=== PATIENT | male | born 1965 | race Caucasian/White ===

== ENCOUNTER 2020-06-16 01:07 | Outpatient (CLI) | payer BC, SELFPAY ==
[2020-06-16 19:58] LABS: SARS-CoV-2 RNA PCR Negative
== END 2020-06-16 01:08 | disposition home or self-care (01) ==
LOC: ANHCOVIDDT 01:07
PROVIDERS: PCP Family Medicine; Visit Provider Surgery
DX: Z01.812 Encounter for preprocedural laboratory examination (principal); Z20.828 Contact with and (suspected) exposure to other viral communicable diseases
CPT/HCPCS: 87635; C9803; U0003

== ENCOUNTER 2020-06-18 03:06 | Day surgery (SDC) | payer BC, SELFPAY ==
[2020-06-05 10:06] VITALS: BMI 23.6
--- NOTE | 2020-06-17 16:06 | WPDANESEPPF ---
Anes - Initial Pre Proc Eval Procedure: Operation Date: 06/18/20 08:45 Proposed Procedures p Excision Left Forearm Mass, Excision Left Flank Mass, Excision Left Thigh Mass, Excision Right Subcostal Mass, Excision Right Hip Mass, Excision Right Flank Mass - Sharif Lewis DO Date/Time: 06/17/20 16:06 Surgeon: Sharif Lewis DO Pre Op Diagnosis: Lt Forearm/Lt Flank/Lt Thigh/Rt Hip/Rt Flank Mass Patient Data Age: 54 Gender: M Height: 1.75 m Weight: 72.57 kg Allergies Allergy/AdvReac Type Severity Reaction Status Date / Time codeine AdvReac Intermediate Nausea Verified 06/18/20 07:00 Home Medications Medication Instructions Recorded Confirmed Type trazodone 50 mg tablet 50 mg PO HS 09/26/19 06/18/20 History bupropion HCl 150 mg 24 hr tablet, 150 mg PO QAM #90 tablet 03/28/20 06/18/20 Rx extended release lithium carbonate 150 mg PO DAILY 06/18/20 06/18/20 History Patient hx anesthesia problems: none Family hx anesthesia problems: none PMFSH Past Medical History Medical History (Updated 06/17/20 @ 16:06 by Dom Holloway MD) Cyclothymic disorder Lipoma Prostatism Tinea versicolor Unspecified sleep apnea Surgical History Surgical History H/O arthroscopic knee surgery History of sinus surgery History of vasectomy Family History Family History Grandparent Depression Family history of cardiovascular disease Mother Depression Family history of hearing loss Sibling Family history of malignant neoplasm of breast in first degree relative Father Patient's father is in good health Other Family history of malignant neoplasm of stomach Social History Social History Smoking status: Never smoker Alcohol intake: current Drinks per week: 6 Spiritual care concerns: No Anes - Eval Final PreProcedure Day of Procedure 06/17/20 16:06 Patient weight: overweight Heart: regular rate and rhythm Lungs: clear to auscultation and normal air movement Airway: Mallampati scale class II Neurological: alert and oriented Last oral intake: >/= 8 hours ASA classification: II Emergent: no Anesthetic plan: proceed Anesthesia type and monitoring: general GIVS and LMA Informed Consent: The patient's anesthetic plan and its attendant risks and benefits were discussed with the patient/family/POA. Questions were solicited and answers provided to the satisfaction of the patient/family/POA.
[2020-06-18] MEDS: LACTATED RINGERS 1,000 ML 30 ML IV CONT (07:19)
[2020-06-18 07:20] VITALS: BP 119/80; PULSE 72; RESP 16; TEMP 36.3; O2SAT 100
--- NOTE | 2020-06-18 07:22 | WPDHPUPDATE1 ---
History and Physical Update Update Date/Time: 06/18/20 07:22 History and Physical has been reviewed, including an updated exam of the patient. Patient has one other mass on his left chest that he would like removed also. Otherwise, there are NO other changes in the patient's condition. Risks, benefits, and alternatives have been discussed and questions answered. Patient agrees to proceed with procedure.
[2020-06-18] MEDS: ceFAZolin 2 GM/D5W 50 ML 2 GM/50 ML BAG IVPB (08:36)
[2020-06-18] MEDS: LIDO 1%/EPINEPHRINE 1:100,000 20 ML VIAL INFILTRATE (09:05)
--- NOTE | 2020-06-18 09:23 | P.OP_ITS ---
Procedure Note - Detailed Date of procedure: 06/18/20 Pre-op diagnosis: 1. 1cm left forearm mass 2. 1cm left chest wall mass 3. 2cm left flank mass 4. 2cm left thigh mass 5. 1cm right hip mass 6. 1cm right subcostal mass 7. 2cm right flank mass Post-op diagnosis: same Procedure performed: Excision of 1cm left forearm mass, 1cm left chest wall mass, 2cm left flank mass, 2cm left thigh mass, 1cm right hip mass, 1cm right subcostal mass, and 2cm right flank mass Description of procedure: * Procedure as well as risks, benefits, and alternatives were discussed with the patient. Written consent was obtained and placed in chart prior to procedure. Patient was brought back to surgical suite. He was placed supine on operating table. Time-out was done to confirm patient and procedure. IV sedation was then administered by the Anesthesia Department. The surgical areas were prepped and draped in sterile fashion using chlorhexidine prep. 1% lidocaine with epinephrine was infiltrated locally around each of the masses that were marked in the preop area. A 2 cm incision was made over the lower left forearm mass using a 15 blade scalpel. Electrocautery was used for hemostasis. The subcu mass was then carefully excised and sent to the lab for pathology. The incision was then closed using 4 Monocryl subcuticular suture. A 1 cm incision was made over the left chest wall mass. Electrocautery was used for hemostasis and the mass was carefully excised using blunt dissection and electrocautery. It was completely excised and sent to the lab for pathology. The incision was then reapproximated using 4 Monocryl subcuticular suture. A 2 cm incision was made over the left flank mass using a 15 blade scalpel. Electrocautery was used for hemostasis and the mass was excised completely. The incision was closed using 4 Monocryl subcuticular suture. 2 cm incision was made over the left thigh mass using a 15 blade scalpel. Electrocautery was used for hemostasis and the mass was carefully excised completely. The skin was reapproximated using 4 Monocryl subcuticular suture. A 1 cm incision was made over the right hip mass. Electrocautery was used for hemostasis and the mass was completely excised. The incision was then closed using 4 O Monocryl subcuticular suture. A 1 cm incision was made over the right subcostal mass. Electrocautery was used for hemostasis and the mass was excised completely. The incision was then approximated using 4 Monocryl subcuticular suture. And finally, a 2 cm incision was made over the right flank mass. Electrocautery was used for hemostasis and the mass was excised completely. The incision was approximated using 4 Monocryl subcuticular suture. Exofin glue was applied over each of the incisions. The patient was then awakened from anesthesia and transferred to recovery. Anesthesia: MAC and local (1% lidocaine with epi) Surgeon: Sharif Lewis DO Estimated blood loss (mL): 5 Pathology: yes Complications: No immediate complications Condition: stable Disposition: same day Findings: This is a 54-year-old man who presents with multiple subcu masses on his body. These are soft mobile masses that cause some tenderness and irritate the patient at times. Discussions were made with the patient that these are all likely benign lipomas. Due to his symptoms, he was requesting excision. Decision was made to proceed with excision of the multiple masses. All masses were excised in a similar fashion. They all appeared to have the same consistency of a lipoma, therefore they were all sent as 1 specimen to pathology. No suspicious masses were noted. Final pathology is pending.
[2020-06-18 09:38] VITALS: BP 114/77; PULSE 67; RESP 12; TEMP 35.9; O2SAT 100
[2020-06-18 09:50] VITALS: BP 115/76; PULSE 60; RESP 16; O2SAT 99
[2020-06-18 10:20] VITALS: BP 122/87; PULSE 66; RESP 14; O2SAT 100
[2020-06-18 10:30] VITALS: BP 116/73; PULSE 70; RESP 16; O2SAT 100
== END 2020-06-18 10:43 | disposition home or self-care (01) ==
PROVIDERS: PCP Family Medicine; Visit Provider Surgery
PROC: (CPT 25075; principal; 2020-06-18 08:45)
DX: D17.1 Benign lipomatous neoplasm of skin and subcutaneous tissue of trunk (principal); D17.24 Benign lipomatous neoplasm of skin and subcutaneous tissue of left leg; D17.23 Benign lipomatous neoplasm of skin and subcutaneous tissue of right leg; D17.22 Benign lipomatous neoplasm of skin and subcutaneous tissue of left arm; G47.30 Sleep apnea, unspecified
CPT/HCPCS: 25075; 21555; 22902 ×2; 27327; 27047; 21930; 88304; A9270; J0690; J2250; J2704; J3010; J7120

== ENCOUNTER 2020-09-08 11:45 | Outpatient (NON) | payer BC, SELFPAY ==
[2020-09-08 22:05] LABS: SARS-CoV-2 RNA PCR Negative
== END 2020-09-08 11:46 ==
LOC: ANHCOVIDDT 11:46
PROVIDERS: Family Provider Family Medicine; PCP Family Medicine; Visit Provider Family Medicine
DX: Z20.822 Contact with and (suspected) exposure to COVID-19 (principal); R05 Cough; R50.9 Fever, unspecified; R53.83 Other fatigue
CPT/HCPCS: C9803; U0003; U0005

== ENCOUNTER 2020-10-01 11:34 | Outpatient (CLI) | payer BC, SELFPAY ==
--- NOTE | ~2020-10-01 | XR_ITS ---
EXAMINATION: XR chest 2V DATE: 10/01/2020 11:55 INDICATION: Cough TECHNIQUE: PA and lateral views of the chest are obtained. COMPARISON: 02/26/2019 FINDINGS: The lungs are free of acute opacities. There is no pleural effusion or pneumothorax. The ca rdiomediastinal silhouette is normal. The visualized bones and soft tissues are unremarkable. IMPRESSION: 1. No acute cardiopulmonary abnormality. Reviewed, dictated and finalized at location A. [facility]
== END 2020-10-01 11:35 | disposition home or self-care (01) ==
PROVIDERS: PCP Family Medicine; Visit Provider Family Medicine
DX: R05 Cough (principal)
CPT/HCPCS: 71046

== ENCOUNTER 2022-02-03 13:31 | Outpatient (CLI) | payer OTHER, SELFPAY ==
--- NOTE | ~2022-02-03 | CT_ITS ---
EXAMINATION: CT abdomen wo con DATE: 02/03/2022 13:47 INDICATION: Evaluate for hernia vs lipoma TECHNIQUE: Computed tomography (CT) of the abdomen was performed without intravenous contrast. Automa rossana exposure control and iterative reconstruction technique were employed. The dose-length product wa s 305.47 mGy-cm. COMPARISON: None. FINDINGS: Lower thorax: Unremarkable Liver: Normal. Biliary/Gallbladder: Gallbladder is normal. No bile duct dilation. Pancreas: No mass or duct dilation. Spleen: Normal. Adrenals:No mass. Kidneys: No mass, stone, or hydronephrosis. GI tract: No small or large bowel dilation. Soft Tissues: 3.4 cm circumscribed subcutaneous fat density mass deep to the radiopaque marker. Tiny fat-containing uncomplicated appearing umbilical hernia, otherwise no ventral hernia. Otherwise the s oft tissues and body wall are unremarkable. Bones: No acute osseous finding. IMPRESSION: Midline upper abdominal subcutaneous lipoma. No additional follow-up required unless this is accompan ied by pain or interval growth. Reviewed, dictated and finalized at location K. IMPRESSION: Midline upper abdominal subcutaneous lipoma. No additional follow-up required u nless this is accompanied by pain or interval growth.
== END 2022-02-03 13:32 ==
PROVIDERS: PCP Family Medicine; Visit Provider Surgery
DX: K43.9 Ventral hernia without obstruction or gangrene (principal)
CPT/HCPCS: 74150

== ENCOUNTER 2022-02-10 15:27 | Outpatient (CLI) | payer OTHER, SELFPAY ==
[2022-02-10 16:08] LABS: Lithium 0.3 mmol/L (0.6-1.2)
== END 2022-02-10 15:28 | disposition home or self-care (01) ==
LOC: ANHLAB 15:28
PROVIDERS: PCP Family Medicine; Visit Provider Anesthesiology
DX: Z01.818 Encounter for other preprocedural examination (principal)
CPT/HCPCS: 36415; 80178

== ENCOUNTER 2022-02-17 06:58 | Day surgery (SDC) | payer OTHER, SELFPAY ==
[2022-02-09 16:17] VITALS: BMI 24.3
[2022-02-10 10:09] VITALS: BMI 24.3
--- NOTE | 2022-02-17 07:21 | P.PNAN_ITS ---
Anes - Initial Pre Proc Eval Procedure: Operation Date: 02/17/22 08:30 Proposed Procedures p Excision 3cm Epigastric Lipoma - Sharif Lewis DO Date/Time: 02/17/22 07:21 Surgeon: Sharif Lewis DO Pre Op Diagnosis: Abdominal wall lipoma/mass Patient Data Age: 56 Gender: M Height: 1.75 m Weight: 74.843 kg Allergies Allergy/AdvReac Type Severity Reaction Status Date / Time codeine AdvReac Intermediate Nausea Verified 02/17/22 07:14 Home Medications Medication Instructions Recorded Confirmed Type trazodone 50 mg tablet 50 mg PO HS 09/26/19 02/17/22 History bupropion HCl 150 mg 24 hr tablet, See Rx Instructions .Route 09/14/21 02/17/22 Rx extended release .COMPLEX #90 tabs lithium carbonate 300 mg See Rx Instructions .Route 09/18/21 02/17/22 Rx tablet,extended release .COMPLEX #90 tabs Patient hx anesthesia problems: none Family hx anesthesia problems: none Results Review: All pre-operative results and documents have been reviewed as part of the pre- operative evaluation. [facility] Past Medical History Medical History Angiolipoma Cough Cyclothymic disorder Lipoma Prostatism Superficial phlebitis Tinea versicolor Unspecified sleep apnea Walking pneumonia Surgical History Surgical History H/O arthroscopic knee surgery History of excision of mass 06/18/2020: multiple masses removed. History of sinus surgery History of vasectomy Family History Family History Grandparent Depression Family history of cardiovascular disease Mother Depression Family history of hearing loss Sibling Family history of malignant neoplasm of breast in first degree relative Father Patient's father is in good health Other Family history of malignant neoplasm of stomach Social History Social History Smoking status: Never smoker Alcohol intake: current Drinks per week: 6 Substance use: never Substance use type: does not use Living arrangements: with family Spiritual care concerns: No Anes - Eval Final PreProcedure Day of Procedure 02/17/22 07:21 Patient weight: normal Heart: regular rate and rhythm Lungs: clear to auscultation Airway: Mallampati scale class II Last oral intake: >/= 8 hours ASA classification: II Emergent: no Anesthetic plan: proceed Anesthesia type and monitoring: general GIVS and standard monitoring Results Review: All pre-operative results and documents have been reviewed as part of the pre- operative evaluation. Informed Consent: The patient's anesthetic plan and its attendant risks and benefits were discussed with the patient/family/POA. Questions were solicited and answers provided to the satisfaction of the patient/family/POA.
[2022-02-17 07:30] VITALS: BP 121/82; PULSE 52; RESP 18; TEMP 36.7; O2SAT 100
--- NOTE | 2022-02-17 07:33 | WPDHPUPDATE1 ---
History and Physical Update Update Date/Time: 02/17/22 07:33 History and Physical has been reviewed, including an updated exam of the patient. After obtaining a CT, the palpable mass appears to be a lipoma. I discussed results with patient and have recommended proceeding with excision of 3cm epigastric lipoma. There are NO changes in the patient's condition. Risks, benefits, and alternatives have been discussed and questions answered. Patient agrees to proceed with procedure.
[2022-02-17] MEDS: LACTATED RINGERS 1,000 ML 30 ML IV CONT (07:40)
[2022-02-17] MEDS: FAMOTIDINE 20 MG/2 ML VIAL IV PUSH (07:42)
[2022-02-17] MEDS: ONDANSETRON INJ 4 MG/2 ML VIAL IV PUSH (07:42)
[2022-02-17 07:43] VITALS: BMI 23.1
--- NOTE | 2022-02-17 08:45 | W.PM.PROC2 ---
Procedure Note - Detailed Date of Procedure 02/17/22 Pre-op Diagnosis Abdominal wall lipoma/mass Post-op Diagnosis Other (Epigastric hernia) Procedure Performed Epigastric hernia repair Surgeon Sharif Lewis, DO Anesthesia MAC and Local ( 1% lidocaine with epinephrine) Indications this is a 56-year-old man who presented with an abdominal wall mass. He states that this had been present for at least several months. He has minimal discomfort with this. It never completely goes away. It was difficult to appreciate whether this was a hernia on physical exam. A CT of the abdomen was obtained and this showed evidence of a 3 cm lipoma in the epigastric region. Discussions were made with the patient about treatment options and decision was made to proceed with excision of 3 cm epigastric abdominal wall hernia. Findings Upon exploration around the area, this did not appear to be an actual lipoma. There was fatty tissue protruding from a 5 mm epigastric hernia. The hernia sac and preperitoneal fat was excised and sent to the lab for pathology. The hernia defect was very small, therefore this was repaired using 0 Ethibond [id number] sutures. Two sutures were placed transversely to approximate the fascia without any tension. Description of Procedure Procedure as well as risks, benefits, and alternatives were discussed with the patient. Written consent was obtained and placed in chart prior to procedure. Patient was brought back to surgical suite. He was placed supine on operating table. Time-out was done to confirm patient and procedure. IV sedation was then administered by the anesthesia department. His abdomen was prepped and draped in sterile fashion using chlorhexidine prep. 1% lidocaine with epinephrine was infiltrated locally around the region of concern. A 3 cm transverse incision was made directly over the mass using a 15 blade scalpel. Electrocautery was used for hemostasis and dissection through subcutaneous tissue. The lump was identified and this was carefully dissected free from the surrounding subcutaneous attachments. I then identified that this was coming from a 5 mm epigastric hernia. The hernia sac was excised and sent to the lab for pathology. The hernia defect was very small, therefore decision was made to repair this primarily. The hernia defect was closed using 0 Ethibond [id number] sutures. A total of 2 sutures were placed transversely to approximate the fascia. The repair was inspected and appeared secure. No other abnormalities were noted. The subcutaneous space was then reapproximated using 3-0 Vicryl simple interrupted sutures. The skin was approximated using 4-0 Monocryl subcuticular stitch. Exofin glue was then applied on top. The patient was then awakened from anesthesia and transferred to recovery. Estimated Blood Loss 5 Pathology Yes ( Hernia sac) Complications No immediate complications Condition Stable Disposition Same day [facility] Billing Surgery - Charge Forward: Surgery Billing
[2022-02-17 08:51] VITALS: BP 106/70; PULSE 64; RESP 14; O2SAT 100
--- NOTE | 2022-02-17 09:08 | WPDANESPN ---
Anes - Prog Note Post-Op Date/Time: 02/17/22 09:08 Cardiovascular status: normal Respiratory status: normal Airway patency: baseline Mental status: baseline Post-Op hydration status: normal Vital Signs: Last Vital Signs Temp 36.7 C 02/17/22 07:30 Pulse 64 02/17/22 08:51 Resp 14 02/17/22 08:51 BP 106/70 02/17/22 08:51 Pulse Ox 100 02/17/22 08:51 O2 Del Method Room Air 02/17/22 08:51 Pain Score (VAS): 0/10 I/O: Intake & Output 02/16/22 02/17/22 02/17/22 23:59 07:59 15:59 Intake Total 0 Balance 0 Patient Feedback: Patient satisfied with anesthetic care.
[2022-02-17 09:20] VITALS: BP 117/79; PULSE 65; RESP 16
== END 2022-02-17 09:41 | disposition home or self-care (01) ==
PROVIDERS: PCP Family Medicine; Visit Provider Surgery
PROC: (CPT 49570; principal; 2022-02-17 08:30)
DX: K43.9 Ventral hernia without obstruction or gangrene (principal)
CPT/HCPCS: 49570

== ENCOUNTER 2022-02-17 09:54 | Outpatient (NON) | payer OTHER, SELFPAY | END 2022-02-17 09:55 | disposition home or self-care (01) | LOC: ANHLAB 02-18 09:56 | PROVIDERS: PCP Family Medicine; Visit Provider Surgery | DX: K43.9 Ventral hernia without obstruction or gangrene (principal) | CPT/HCPCS: 88302 ==

== ENCOUNTER 2022-07-28 11:56 | Emergency (ER) | payer OTHER, SELFPAY ==
[2022-07-28] MEDS: LIDOCAINE HCL 1% LOCAL INJ 2 ML AMPUL INFILTRATE (12:18)
--- NOTE | 2022-07-28 12:48 | ED.WOUNDLAC ---
HPI - Wound/Laceration General Chief Complaint: Extremity Injury, Upper Stated Complaint: lt thumb injury Time Seen by Provider: 07/28/22 12:30 Source: patient Mode of arrival: ambulatory Limitations: no limitations History of Present Illness HPI narrative: Fede is a 56-year-old female patient presenting to clinic today with complaints a laceration to his left palmar aspect of his thumb. States he cut it on a band saw today approximately 1 hour prior to arrival. Bleeding is controlled. Tetanus is up-to-date per patient Related Data Home Medications Medication Instructions Recorded Confirmed trazodone 50 mg tablet 50 mg PO HS 09/26/19 07/28/22 Allergies Allergy/AdvReac Type Severity Reaction Status Date / Time codeine AdvReac Intermediate Nausea Verified 06/03/22 11:22 Review of Systems Review of Systems: Pertinent positives per HPI. Patient denies any fever, chills, rash, headache, visual changes, dizziness, cough, runny nose, sore throat, shortness of breath, chest pain, palpitations, nausea, vomiting, diarrhea, constipation, abdominal pain, or any urinary issues. [facility] Past Medical History Medical History Angiolipoma Cough Cyclothymic disorder Lipoma Prostatism Superficial phlebitis Tinea versicolor Unspecified sleep apnea Walking pneumonia Surgical History Surgical History H/O arthroscopic knee surgery History of excision of mass 06/18/2020: multiple masses removed. History of sinus surgery History of vasectomy S/P epigastric hernia repair, follow-up exam S/P excision of lipoma 3cm epigastric lipoma removed on 02/17/22 Family History Family History Grandparent Depression Family history of cardiovascular disease Mother Depression Family history of hearing loss Sibling Family history of malignant neoplasm of breast in first degree relative Father Patient's father is in good health Other Family history of malignant neoplasm of stomach Social History Social History Smoking status: Never smoker Alcohol intake: current Drinks per week: 6 Substance use: never Substance use type: does not use Spiritual care concerns: No Comments At the time of my signature, I reviewed and agree with the nursing past medical, surgical, social, and family history. There is no relevant family history pertinent to the patient complaint. Exam Narrative: General: Well-developed, well nourished, in no apparent distress Head: Normocephalic, atraumatic. Cardio: Regular rate and rhythm, s1 and s2 normal, no murmur appreciated. Resp: Clear to auscultation bilaterally, no rhonchi, rales, wheezing or rubs. Integumentary: [place], warm, and dry, 1.5 cm laceration to the left the palmar aspect of the thumb just above the PIP joint. Bleeding controlled Course Course Emergency Course: Portions of this record may have been created with voice recognition software. Level of Care: Express Care Visit Vital Signs Vital signs: Vital signs reviewed Procedures Laceration Laceration 1: Date: 07/28/22 Site: other (Left thumb) Side (If applicable): left Size (cm): 1.5 Description: linear Depth: simple, single layer Local Anesthetic: lidocaine 1% Amount of anesthesia used (mL): 2 Pre-repair: wound explored and irrigated ====== Skin Level ====== Skin layer closed with: nylon Size (cm): 4-0 Number of sutures: 4 Technique: simple, interrupted ====== Subcutaneous Layer ====== ====== Muscle Layer ====== ====== Tendon Layer ====== Dressing: Verbal consent obtained for laceration repair. Risk and benefits explained and patient voiced understanding. Vince
[2022-07-28 12:56] VITALS: BP 116/77; PULSE 60; RESP 20; TEMP 36.6; O2SAT 100
== END 2022-07-28 13:00 | disposition home or self-care (01) ==
PROVIDERS: Emergency Provider Nurse Practitioner Family; PCP Family Medicine
DX: S61.012A Laceration without foreign body of left thumb without damage to nail, initial encounter (principal); W27.0XXA Contact with workbench tool, initial encounter; Z98.52 Vasectomy status; Z86.72 Personal history of thrombophlebitis
CPT/HCPCS: 12001; 99213; G0463

== ENCOUNTER 2023-06-23 09:38 | Outpatient (CLI) | payer OTHER, SELFPAY ==
[2023-06-23 11:58] LABS: Basophils Absolute Auto 0.1 K/mm3 (0.0-0.1); Basophils Percent Auto 1.3 % (0.2-1.2); Eosinophils Absolute Auto 0.2 K/mm3 (0-0.3); Eosinophils Percent Auto 3.1 % (0-4.4); Hematocrit 45.4 % (42.0-52.0); Hemoglobin 14.9 g/dL (14.0-18.0); Immature Granulocyte Absolute 0.01 K/mm3 (0.00-0.031); Immature Granulocyte Percent A 0.2 % (0-0.5); Lymphocytes Absolute Auto 1.59 K/mm3 (0.9-3.2); Lymphocytes Percent Auto 30.4 % (18.3-44.2); Mean Corpuscular HGB Conc 32.8 g/dl (32-36); Mean Corpuscular Hemoglobin 29.2 pg (26-34); Mean Platelet Volume 10.5 fl (7.4-10.4); Monocytes Absolute Auto 0.4 K/mm3 (0.1-0.6); Monocytes Percent Auto 8.4 % (2.6-8.5); Neutrophils Percent Auto 56.6 % (45.5-73.1); Platelet Count Result 205 k/mm3 (150-375); Red Cell Distribution Width 12.4 % (11.5-14.5); White Blood Count 5.2 K/mm3 (4.5-10.0)
[2023-06-23 12:30] LABS: Anion Gap 6 mmol/L (8-16); Blood Urea Nitrogen 14 mg/dL (9-20); Calcium 9.2 mg/dL (8.4-10.2); Carbon Dioxide 29 mmol/L (22-30); Chloride 106 mmol/L (98-107); Cholesterol 223 mg/dL (0-200); Estimated Glomerular Filt Rate > 60; Glucose 89 mg/dL (65-110); HDL Direct 34 mg/dL; Potassium 4.3 mmol/L (3.4-5.0); Sodium 141 mmol/L (137-145); Triglycerides 191 mg/dL (<150)
[2023-06-23 12:40] LABS: LDL Cholesterol Direct 134 mg/dL
[2023-06-23 18:36] LABS: Lithium 0.3 mmol/L (0.6-1.2)
== END 2023-06-23 09:39 | disposition home or self-care (01) ==
LOC: ANHGOSHLAB 09:39
PROVIDERS: PCP Family Medicine; Visit Provider Nurse Practitioner Family
DX: E78.1 Pure hyperglyceridemia (principal); F34.0 Cyclothymic disorder; L74.519 Primary focal hyperhidrosis, unspecified
CPT/HCPCS: 36415; 80048; 80061; 80178; 84443; 85025

== ENCOUNTER → 2023-08-19 09:00 | Outpatient (CLI) | payer OTHER, SELFPAY ==
--- NOTE | ~2023-08-19 | XR_ITS ---
XR hip LT 2V w AP pelvis DATE: 08/19/2023 09:38 INDICATION: Sacrococcygeal disorder TECHNIQUE: AP pelvis. AP and lateral views of left hip. COMPARISON: None FINDINGS: No pelvic fracture or bone destruction. The pubic symphysis and sacroiliac joints are intac t. Hip joint spaces are symmetric and well preserved. No fracture, dislocation, avascular necrosis or bone destruction of the left hip is detected. IMPRESSION: Negative Reviewed, dictated and finalized at location B. [facility] IMPRESSION: Negative
== END ==
PROVIDERS: PCP Family Medicine; Visit Provider Nurse Practitioner Family
DX: M53.3 Sacrococcygeal disorders, not elsewhere classified (principal)
CPT/HCPCS: 73502

== ENCOUNTER 2023-11-11 06:59 | Outpatient (CLI) | payer OTHER, SELFPAY ==
--- NOTE | ~2023-11-11 | MR_ITS ---
EXAMINATION: MR hip LT wo con DATE: 11/11/2023 07:46 INDICATION: Left hip pain. TECHNIQUE: Magnetic resonance imaging (MRI) of the left hip was performed without intravenous contras t. COMPARISON: Pelvis and left hip radiographs 08/19/2023 FINDINGS: Bones/cartilage: Bone alignment is normal. No fracture. There is decreased femoral head/neck offset bilaterally, which may be seen with femoral acetabular impingement. The hips demonstrate tiny osteophytes. Small field- of-view images of left hip demonstrate partial-thickness cartilage loss, worst superiorly. Labrum: There is a tear of the left acetabular labrum. Fluid: There is no hip joint effusion. There is mild bilateral trochanteric bursitis. Soft tissues: The gluteus minimus and gluteus medius tendons are normal. The hamstring tendon origins are normal. T he iliopsoas tendons are normal. The prostate is mildly enlarged. IMPRESSION: 1. Mild osteoarthritis of the hips. Reviewed, dictated and finalized at location A.
== END 2023-11-11 07:00 ==
PROVIDERS: PCP Family Medicine; Visit Provider Family Medicine
DX: M16.12 Unilateral primary osteoarthritis, left hip (principal)
CPT/HCPCS: 73721

== ENCOUNTER 2024-04-10 10:44 | Outpatient (CLI) | payer OTHER, SELFPAY ==
--- NOTE | ~2024-04-10 | XR_ITS ---
EXAMINATION: XR foot LT min 3V DATE: 04/10/2024 10:49 INDICATION: Left foot Achilles pain. TECHNIQUE: 4 views of left foot were obtained. COMPARISON: Left radiographs 08/20/2014 FINDINGS: Bone alignment is normal. No fracture. Joint spaces are normal. There are enthesophytes at the posterior and plantar aspects of calcaneal tuberosity. IMPRESSION: 1. No fracture. Reviewed, dictated and finalized at location A. IMPRESSION: 1. No fracture.
--- NOTE | ~2024-04-10 | XR_ITS ---
EXAMINATION: XR foot RT min 3V DATE: 04/10/2024 10:50 INDICATION: Pain in the plantar surface of right foot. TECHNIQUE: 4 views of right foot were obtained. COMPARISON: None. FINDINGS: Alignment is normal. No fracture. There is mild osteoarthritis of first metatarsophalangeal joint. There is an enthesophyte at plantar aspect of calcaneal tuberosity. IMPRESSION: 1. Mild osteoarthritis of first metatarsophalangeal joint. Reviewed, dictated and finalized at location A.
== END 2024-04-10 10:45 ==
LOC: GOSHIMG 10:44
PROVIDERS: PCP Nurse Practitioner Family; Visit Provider Nurse Practitioner Family
DX: M19.071 Primary osteoarthritis, right ankle and foot (principal)
CPT/HCPCS: 73630

== ENCOUNTER 2024-10-04 00:37 | Day surgery (SDC) | payer OTHER, SELFPAY ==
[2024-09-17 15:39] VITALS: BMI 23.6
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
--- OUTSIDE RECORDS SUMMARY | 2024-10-04 00:40 | XMS_ITS | Continuity of Care Document ---
Author Organization [facility] Address [address] [place] [address] Phone Care Team Providers Care Acoustic Sensor Operator Name Role Phone Errol Ruggiero DO Unavailable Unavailable Advance Directives Directive Yes / No Effective Date File Name No Information Encounters Encounter Description Practice Location Reason(s) For Visit Diagnoses Date Provider Providers Copied on Encounter [facility], [address], [place], [place], [id number], [place] tel:[phone] [facility] Moises De Leon No Information Monik Crum. [address] [facility], [place], [address], [place]. tel: [phone] Family History Family Member Type Diagnosis Age At Onset No Information Payers Payer name Insurance type Covered constitution party ID Authoriza tion(s) No Information Social History Type Description Quantity Date Captured Comments Sex Female Smoking Status No Information Chief Complaint And Reason For Visit No Information Reason For Referral Reason For Referral No Information History Of Present Illness Encounter Date Complaint History Of Prese nt Illness No Information Functional Status Date Functional Assessmen t No Information Instructions Date Instruction Additional Infor mation No Information Assessments Type Assessment Date No Information Patient Care Teams Name Effective Dates (start - stop) Status Members No Information
--- OUTSIDE RECORDS SUMMARY | 2024-10-04 00:40 | XMS_ITS | Referral Summary ---
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); Other depression from Last 3 Months Allergies Active Allergy Reactions Criticality Noted Date [...] (10/09/2019): Added automatically from request for surgery [id number] Chondromalacia of medial femoral condyle, left 0 10/09/2019 Overview (10/09/2019): Added automatically from request for surgery [id number] Chronic pain of left knee 08/23/2019 BMI [...] 08/22/2024 Overview (11/26/2022): well controlled with meds Immunizations Immunization Administration Dates Next Due Influenza, Quadrivalent, Rec ombinant, Egg Free, Preservative Free, Intramuscular 06/19/2021,05/19/2020,10/08/2019 Td, adsorbed 07/06/1990 Social History Tobacco Use Types Packs/Day Years Used Date Smoking Tobacco: Never Smokeless Tobacco: Never Tobacco Cessation:Counseling Given: Not Answered Alcohol Use Standard Drinks/Week Comments Yes 0 (1 standard drink = 0.6 oz pur e alcohol) 4-5 drinks per week Sex and Gender Information Value Date Recorded Sex Assigned at Not on file Legal Sex Male 5:08 PM BOAT CARPENTER Gender Identity Not on file Sexual Orientation Not on file Last Filed Vital Signs Vital Sign Reading Time Taken Comments Blood Pressure 109/77 08/22/2024 8:45 AM BOAT CARPENTER Pulse 60 08/22/2024 8:45 AM BOAT CARPENTER Temperature 37 C (98.6 F) 08/22/2024 8:45 AM BOAT CARPENTER Respiratory Rate 12 11/26/2022 9:31 AM CDT Oxygen Saturation 99% 08/22/2024 8:45 AM BOAT CARPENTER Inhaled Oxygen Concentration - - Weight 75.5 kg (166 lb 8 oz) 08/22/2024 8:45 AM BOAT CARPENTER Height 175.3 cm (5' 9 ) 08/22/2024 8:45 AM BOAT CARPENTER Body Mass Index 24.59 08/22/2024 8:45 AM BOAT CARPENTER Plan of Treatment Not on file Insurance [facility] [facility] [employer] [facility] [place] [address] [employer] Advance Directives For more information, please contact: [phone] * Full Code (Latest Code Status on File) Date Activated Date Inactivated Comments 10/24/2019 9:28 AM 10/24/2019 2:36 PM Care Teams Rv Detailer Relationship Specialty Start Date End Date Jj Pope MD PCP - General 11/16/16
--- OUTSIDE RECORDS SUMMARY | 2024-10-04 00:40 | XMS_ITS | Clinical Summary ---
Author Organization [facility] Address [address] [place] [address] Care Team Providers Care File Conversion Operator Name Role Phone Jj Pope MD Primary Care Provider [phone]- [phone] Allergies Active Allergy Reactions Criticality Noted Date Comments Codeine Nausea Low 10/31/2021 Medications buPROPion (WELLBUTRIN) 150 MG XL tablet 8 Active fluticasone-gladys meterol (ADVAIR) 250-50 MCG/DOSE AEROSOL POWDER, BREATH ACTIVATED 1 Active lithium (LITHOBID) 300 MG Tablet Controlled Release 2 Active traZODone (DESYREL) 50 MG Tablet TAKE 1 TABLET BY MOUTH EVERYDAY AT BEDTIME 2 Active HYDROcodone-saturnino taminophen (NORCO) 5-325 MG TabletIndicatio ns:Gastrocnemiu s equinus of right lower extremity One every 4 to 6 hours as needed for pain, take with food, may cause nausea, constipation, drowsiness, therefore do not operate machinery for 6 hours after taking it. 12 Tablet 2 Active Active Problems No known active problems Immunizations Immunization Administration Dates Next Due Covid-19, Mrna, Lnp-s, Pf, 1 00 Mcg Or 50 Mcg Dose (MODERNA) 08/04/2021,11/20/2020,10/23/2020 Influenza, Recombinant, Quadrivalent,injectable, Pf 06/19/2021,05/19/2020,10/08/2019 TD VACCINE 07/06/1990 Social History Tobacco Use Types Packs/Day Years Used Date Smoking Tobacco: Never Smokeless Tobacco: Never Tobacco Cessation:Counseling Given: No Sex and Gender Information Value Date Recorded Sex Assigned at Not on file Legal Sex Male 1:40 PM CDT Gender Identity Not on file Sexual Orientation Not on file Last Filed Vital Signs Vital Sign Reading Time Taken Comments Blood Pressure 124/76 10/31/2021 1:51 PM CDT Pulse 77 10/31/2021 1:51 PM CDT Temperature - - Respiratory Rate 16 10/31/2021 1:51 PM CDT Oxygen Saturation 97% 10/31/2021 1:51 PM CDT Inhaled Oxygen Concentration - - Weight 71.7 kg (158 lb) 10/31/2021 1:51 PM CDT Height 175.3 cm (5' 9 ) 10/31/2021 1:51 PM CDT Body Mass Index 23.33 10/31/2021 1:51 PM CDT Plan of Treatment Health Maintenance Due Date Last Done Comments Hepatitis C Virus (HCV) Screening 1965 TdaP Immunization 1965 Colonoscopy 11/15/2008 Colorectal Cancer Screening 11/15/2008 Cologuard 11/15/2013 Immunochemical Fecal Occult Blood 11/15/2013 Pneumococcal Immunization (5 0+ years) (1 of 1 - PCV) 11/15/2013 Zoster Immunization (1 of 2) 11/15/2013 PSA Discussion 11/15/2018 Influenza Immunization (#1) 2024 11/0 12/2020, 05/19/2020, 10/08/2019 SARS-COV-2 Immunization ( season) 2024 08/04/2021, 11/20/2020, 10/23/2020 Respiratory Syncytial Virus (RSV) Immunization (Adult) (1 - 1-dose 75+ series) 11/15/2038 DTaP/Tdap/Td Immunization Discontinued 07/06/1990 Hepatitis B Immunization Aged Out No longer eligible based on patient's age to complete this topic Meningococcal Immunization (ACWY) Aged Out No longer eligible based on patient's age to complete this topic Pneumococcal Immunization Combined Aged Out No longer eligible based on patient's age to complete this topic Rotavirus Immunization Aged Out No lo nger eligible based on patient's age to complete this topic Insurance [facility] Care Teams File Conversion Operator Relationship Specialty Start Date End Date Jj Pope MD [address] [facility] [address] [place] [address] PCP - General Family Medicine 10/31/21
--- OUTSIDE RECORDS SUMMARY | 2024-10-04 00:40 | XMS_ITS | Patient Health Summary ---
Author Organization [facility] Address [address] [place] [address] Care Team Providers Care Lap Hand Tool Name Role Phone Jj Pope MD Primary Care Provider [phone]- [phone] Note from [facility],non-owned Affiliates and Associated Physician Practices is amultiple site organization consisting of ambulatory clinics and hospital sitesin [place], [place], [place] and [place]. This disclosure is being madepursuant to the Care Everywhere program and may not contain all information available regarding this patient. Last updated 18.[facility] Social History Tobacco Use Types Packs/Day Years Used Date Smoking Tobacco: Never Assessed Sex and Gender Information Value Date Recorded Sex Assigned at Not on file Gender Identity Not on file Sexual Orientation Not on file Procedures * DERMATOPATHOLOGY(Performed 09/22/2022) Results * DERMATOPATHOLOGY (09/22/2022 12:00 AM TRANSPORTATION EQUIPMENT PAINTER) Case Report Dermatopathology Report Case: [id number] Authorizing Provider: Garrick White MD Collected: 09/22/2022 12:00 AM Ordering Location: [facility] DermPath Lab Received: 09/23/2022 04:39 PM Pathologist: Luz Marina Linder MD Specimen: Skin, right upper back 3 3:29 PM TRANSPORTATION EQUIPMENT PAINTER DERMATOPATHOLOGY LABORATORY Final Diagnosis Specimen A. SKIN, right upper back: INTRADERMAL MELANOCYTIC NEVUS, SUPERFICIAL PORTIONS OF (D22.5) 3 3:29 PM TRANSPORTATION EQUIPMENT PAINTER DERMATOPATHOLOGY LABORATORY Clinical History Nevus vs. MM Path# [id number] 3 3:29 PM TRANSPORTATION EQUIPMENT PAINTER DERMATOPATHOLOGY LABORATORY Gross Description Specimen A: Received is one formalin filled container labeled with the patient's name and designated right upper back. The specimen consists of a shave biopsy measuring 5x3x1 mm. Jar 0. 3 3:29 PM [facility] DERMATOPATHOLOGY LABORATORY Microscopic Description Specimen A. SKIN, right upper back: There are nests of cytologically bland melanocytes within the dermis that mature with depth. The base of the lesion is not visualized. HMB45 stain is lost in the dermal melanocytes with dermal descent. Additional deeper sections were obtained and reviewed. 3 3:29 PM [facility] DERMATOPATHOLOGY LABORATORY Disclaimer An external and internal positive and negative controls are appropriate for the histochemical, immunohistochemical and immunofluorescence stain(s) in this case (if any), except where stated explicitly. The performance characteristics of the stain(s) cited in this report were developed and its performance characteristic determined by the Dermatopathology Laboratory at [facility], directed by Dr. Letitia Molina. These tests need not be, and therefore are not, approved by the [place] Food and Drug Administration. The tests are used for clinical purposes. Billing Codes Specimen Charges Stain Charges 25603 1 44011 1 3 3:29 PM [facility] DERMATOPATHOLOGY LABORATORY Embedded Images 3 3:29 PM [facility] DERMATOPATHOLOGY LABORATORY Pathology/Cytolog y TISSUE SPECIMEN FROM SKIN / Unknown 09/22/2022 09/23/2022 4:39 PM TRANSPORTATION EQUIPMENT PAINTER Garrick White MD LAB - PATHOLOGY/CYTO LOGY ORDERABLES DERMATOPATHOLOGY LABORATORY [facility] - Department of Dermatology [facility] [address] [place] [address], [address] [phone] Care Teams Lap Hand Tool Relationship Specialty Start Date End Date Jj Pope MD [facility] [place] [address] PCP - General 06/23/20
--- OUTSIDE RECORDS SUMMARY | 2024-10-04 00:40 | XMS_ITS | Encounter Summary ---
Author Organization [facility] Address [address] [place] [address] Care Team Providers Care Supervisor Boilermaking Shop Name Role Phone Jj Pope MD Primary Care Provider [phone]- [phone] Encounter Details Date Type Department Care Team (Late st Contact Info) Description 09/23/2022 Lab Requisition [facility] DermPath Lab [address] [place] [id number] Garrick White MD [address] [place] [address] Social History Tobacco Use Types Packs/Day Years Used Date Smoking Tobacco: Never Assessed Sex and Gender Information Value Date Recorded Sex Assigned at Not on file Gender Identity Not on file Sexual Orientation Not on file documented as of this encounter Plan of Treatment Not on file documented as of this encounter Procedures Procedure Name Priority Date/Time Associated Diagnosis Comments DERMATOPATHOLOGY Routine 09/22/2022 12:0 0 AM FRUIT BAR MAKER documented in this encounter Results * DERMATOPATHOLOGY (09/22/2022 12:00 AM FRUIT BAR MAKER) Case Report Dermatopathology Report Case: [id number] Authorizing Provider: Garrick White MD Collected: 09/22/2022 12:00 AM Ordering Location: [facility] DermPath Lab Received: 09/23/2022 04:39 PM Pathologist: Luz Marina Linder MD Specimen: Skin, right upper back 3 3:29 PM FRUIT BAR MAKER DERMATOPATHOLOGY LABORATORY Final Diagnosis Specimen A. SKIN, right upper back: INTRADERMAL MELANOCYTIC NEVUS, SUPERFICIAL PORTIONS OF (D22.5) 3 3:29 PM FRUIT BAR MAKER DERMATOPATHOLOGY LABORATORY Clinical History Nevus vs. MM Path# [id number] 3 3:29 PM [facility] DERMATOPATHOLOGY LABORATORY Gross Description Specimen A: Received is one formalin filled container labeled with the patient's name and designated right upper back. The specimen consists of a shave biopsy measuring 5x3x1 mm. Jar 0. 3 3:29 PM [facility] DERMATOPATHOLOGY LABORATORY Microscopic Description Specimen A. SKIN, right upper back: There are nests of cytologically bland melanocytes within the dermis that mature with depth. The base of the lesion is not visualized. HMB45 stain is lost in the dermal melanocytes with dermal descent. Additional deeper sections were obtained and reviewed. 3 3:29 PM [facility] DERMATOPATHOLOGY LABORATORY Disclaimer An external and internal positive and negative controls are appropriate for the histochemical, immunohistochemical and immunofluorescence stain(s) in this case (if any), except where stated explicitly. The performance characteristics of the stain(s) cited in this report were developed and its performance characteristic determined by the Dermatopathology Laboratory at [facility], directed by Dr. Letitia Molina. These tests need not be, and therefore are not, approved by the [place] Food and Drug Administration. The tests are used for clinical purposes. Billing Codes Specimen Charges Stain Charges 72891 1 97990 1 3 3:29 PM [facility] DERMATOPATHOLOGY LABORATORY Embedded Images 3 3:29 PM [facility] DERMATOPATHOLOGY LABORATORY Pathology/Cytolog y TISSUE SPECIMEN FROM SKIN / Unknown 09/22/2022 09/23/2022 4:39 PM FRUIT BAR MAKER Garrick White MD LAB - PATHOLOGY/CYTO LOGY ORDERABLES DERMATOPATHOLOGY LABORATORY [facility] - Department of Dermatology [address], [address] [phone] documented in this encounter Visit Diagnoses Not on filedocumented in this encounter Care Teams Supervisor Boilermaking Shop Relationship Specialty Start Date End Date Jj Pope MD [address] [place] [address] PCP - General 06/23/20 documented as of this encounter
--- OUTSIDE RECORDS SUMMARY | 2024-10-04 00:40 | XMS_ITS | Referral Summary ---
Author Organization [facility] Address [address] [facility] [place] [address] Care Team Providers Care Credentialing Manager Name Role Phone Jj Pope MD Primary Care Provider [phone]- [phone] Source Comments [facility],non-owned Affiliates and Associated Physician Practices is amultiple site organization consisting of ambulatory clinics and hospital sitesin [place], [place], [place] and [place]. This disclosure is being madepursuant to the Care Everywhere program and may not contain all information available regarding this patient. Last updated 18.[facility] Social History Tobacco Use Types Packs/Day Years Used Date Smoking Tobacco: Never Assessed Sex and Gender Information Value Date Recorded Sex Assigned at Not on file Gender Identity Not on file Sexual Orientation Not on file Plan of Treatment Not on file Care Teams Credentialing Manager Relationship Specialty Start Date End Date Jj Pope MD [address] [place] [phone] PCP - General 06/23/20
--- OUTSIDE RECORDS SUMMARY | 2024-10-04 00:40 | XMS_ITS | Clinical Summary ---
Author Organization [facility] Address [address] [place] [address] Care Team Providers Care Director Of Gift Planning Name Role Phone Jj Pope MD Primary Care Provider [phone]- [phone] Source Comments [facility],non-owned Affiliates and Associated Physician Practices is amultiple site organization consisting of ambulatory clinics and hospital sitesin [place], [place], [place] and [place]. This disclosure is being madepursuant to the Care Everywhere program and may not contain all information available regarding this patient. Last updated 18.[facility] [employer] Social History Tobacco Use Types Packs/Day Years Used Date Smoking Tobacco: Never Assessed Sex and Gender Information Value Date Recorded Sex Assigned at Not on file Gender Identity Not on file Sexual Orientation Not on file Plan of Treatment Health Maintenance Due Date Last Done Comments COLOGUARD (AGES 45-75) - COL ON CA SCREENING 1963 COLON MONITORING 1963 COLONOSCOPY - COLON CA SCREENING 1963 CT COLONOGRAPHY - COLON CA SCREENING 1963 Colorectal Cancer Screening 1963 FIT - COLON CA SCREENING 1963 FLEX SIG - COLON CA SCREENING 1963 LIPID TESTING 1963 HIV SCREENING 11/15/1978 HEPATITIS C SCREENING 11/11/1981 DTAP/TDAP/TD VACCINES (1 - Tdap) 11/15/1982 PNEUMOCOCCAL VACCINE 50+ (1 of 1 - PCV) 11/15/2013 ZOSTER VACCINE (1 of 2) 11/15/2013 COVID-19 VACCINE ( - 2023-2 5 season) 2024 INFLUENZA VACCINE (#1) 2024 DEPRESSION SCREENING 08/15/2024 Respiratory Syncytial Virus (RSV) Vaccine Pt: or over 60 yrs (1 - 1-dose 75+ series) 11/15/2038 HEPATITIS B VACCINE Aged Out No longe r eligible based on patient's age to complete this topic HIB VACCINE Aged Out No longer eligi ble based on patient's age to complete this topic HPV VACCINE Aged Out No longer eligi ble based on patient's age to complete this topic MENINGOCOCCAL (Group B) VACCINE Aged Out No longer eligible based on patient's age to complete this topic MENINGOCOCCAL VACCINE Aged Out No emmanuel renuka eligible based on patient's age to complete this topic PNEUMOCOCCAL VACCINE Aged Out No long er eligible based on patient's age to complete this topic Care Teams Director Of Gift Planning Relationship Specialty Start Date End Date Jj Pope MD [facility] [place] [id number] PCP - General 06/23/20
[2024-10-04 07:09] VITALS: BP 141/74; PULSE 62; RESP 16; TEMP 36.2; O2SAT 100
[2024-10-04] MEDS: LACTATED RINGERS 1,000 ML 150 ML IV CONT (07:18)
--- NOTE | 2024-10-04 07:27 | P.PNAN_ITS ---
Anes - Initial Pre Proc Eval Procedure: Operation Date: 10/04/24 08:30 Proposed Procedures p Colonoscopy - Ankur Cottrell MD Date/Time: 10/04/24 07:27 Surgeon: Ankur Cottrell MD Pre Op Diagnosis: screening colon Patient Data Age: 58 Gender: M Height: 1.75 m Weight: 74.2 kg Last Vital Signs Temp 97.2 F L 10/04/24 07:09 Pulse 62 10/04/24 07:09 Resp 16 10/04/24 07:09 BP 141/74 H 10/04/24 07:09 Pulse Ox 100 10/04/24 07:09 O2 Del Method Room Air 10/04/24 07:09 Allergies Allergy/AdvReac Type Severity Reaction Status Date / Time codeine AdvReac Intermediate Nausea Verified 10/04/24 07:05 Home Medications ?Medication ?Instructions ?Recorded ?Confirmed ?Type trazodone 50 mg tablet 50 mg PO HS 09/26/19 10/04/24 History bupropion HCl 150 mg 24 hr tablet, 150 mg PO QAM #90 tabs 04/26/24 10/04/24 Rx extended release lithium carbonate 300 mg See Rx Instructions .Route 08/21/24 10/04/24 Rx tablet,extended release .COMPLEX #90 tabs Patient hx anesthesia problems: none Family hx anesthesia problems: none Results Review: All pre-operative results and documents have been reviewed as part of the pre- operative evaluation. [facility] Past Medical History Medical History Cough Angiolipoma Prostatism Tinea versicolor Lipoma Cyclothymic disorder Unspecified sleep apnea Walking pneumonia Superficial phlebitis Surgical History Surgical History S/P excision of lipoma 3cm epigastric lipoma removed on 02/17/22 S/P epigastric hernia repair, follow-up exam History of excision of mass 06/18/2020: multiple masses removed. History of sinus surgery History of vasectomy H/O arthroscopic knee surgery Family History Family History Grandparent Depression Family history of cardiovascular disease Mother Depression Family history of hearing loss Sibling Family history of malignant neoplasm of breast in first degree relative Father Patient's father is in good health Other Family history of malignant neoplasm of stomach Social History Social History Smoking status: Never smoker Alcohol intake: current Drinks per week: 7 Substance use: never Substance use type: does not use Lack of Transportation: No Lack of Food: Never True Current Housing: I Have Housing Concerned About Future Housing: No Difficulty Paying Gas/Electric Bills: No Difficulty Paying for Meds: No Currently Unemployed: No Education: Bachelor's Degree Difficulty w/ Childcare or Family Care: No Living arrangements: with family Occupation/Education: retired Spiritual care concerns: No Anes - Eval Final PreProcedure Day of Procedure 10/04/24 07:27 Patient weight: normal Lungs: normal air movement Airway: Mallampati scale class II Neurological: alert and oriented Last oral intake: >/= 8 hours ASA classification: II Emergent: no Anesthetic plan: proceed Anesthesia type and monitoring: general GIVS and standard monitoring Results Review: All pre-operative results and documents have been reviewed as part of the pre- operative evaluation. SERGIO on dental appliance only. Active hiker, no cp or sob. Informed Consent: The patient's anesthetic plan and its attendant risks and benefits were discussed with the patient/family/POA. Questions were solicited and answers provided to the satisfaction of the patient/family/POA.
--- NOTE | 2024-10-04 07:56 | PM.IMHP ---
H&P: HPI History of Present Illness Date/Time: 10/04/24 07:56 Chief Complaint: Screening colonoscopy Narrative: This is the patient's 2nd colonoscopy after 10 years.. There are no GI symptoms and there is no family history of colorectal cancer. Review of Systems Review of Systems: All systems reviewed & are unremarkable except as noted in HPI and below PMFSH Past Medical History Medical History Cough Angiolipoma Prostatism Tinea versicolor Lipoma Cyclothymic disorder Unspecified sleep apnea Walking pneumonia Superficial phlebitis Surgical History Surgical History S/P excision of lipoma 3cm epigastric lipoma removed on 02/17/22 S/P epigastric hernia repair, follow-up exam History of excision of mass 06/18/2020: multiple masses removed. History of sinus surgery History of vasectomy H/O arthroscopic knee surgery Family History Family History Grandparent Depression Family history of cardiovascular disease Mother Depression Family history of hearing loss Sibling Family history of malignant neoplasm of breast in first degree relative Father Patient's father is in good health Other Family history of malignant neoplasm of stomach Social History Social History Smoking status: Never smoker Alcohol intake: current Drinks per week: 7 Substance use: never Substance use type: does not use Lack of Transportation: No Lack of Food: Never True Current Housing: I Have Housing Concerned About Future Housing: No Difficulty Paying Gas/Electric Bills: No Difficulty Paying for Meds: No Currently Unemployed: No Education: Bachelor's Degree Difficulty w/ Childcare or Family Care: No Living arrangements: with family Occupation/Education: retired Spiritual care concerns: No Meds Home Medications and Allergies Home Medications ?Medication ?Instructions ?Recorded ?Confirmed ?Type trazodone 50 mg tablet 50 mg PO HS 09/26/19 10/04/24 History bupropion HCl 150 mg 24 hr tablet, 150 mg PO QAM #90 tabs 04/26/24 10/04/24 Rx extended release lithium carbonate 300 mg See Rx Instructions .Route 08/21/24 10/04/24 Rx tablet,extended release .COMPLEX #90 tabs Allergies Allergy/AdvReac Type Severity Reaction Status Date / Time codeine AdvReac Intermediate Nausea Verified 10/04/24 07:05 Vital Signs Vital Signs - 24 hr 10/04/24 07:09 Temperature 97.2 F L Pulse Rate 62 Respiratory Rate 16 Blood Pressure 141/74 H Pulse Oximetry 100 Oxygen Delivery Room Air Exam Const: General: cooperative and healthy appearing Resp: Effort & Inspection: normal respiratory effort and able to speak in complete sentences Auscultation: clear to auscultation bilaterally Cardio: Rate: regular rate Rhythm: regular rhythm GI: Inspection: normal to inspection GI Palp: No No hepatosplenomegaly present Auscultation: normal bowel sounds Rectal Exam: deferred Skin: General skin exam: normal color Psych: Appearance: grossly normal Mental Status: mental status grossly normal Assessment and Plan Assessment and plan (1) Colon cancer screening: Code(s): Z12.11 - Encounter for screening for malignant neoplasm of colon Status: Acute Assessment and Plan: The patient is deemed a good candidate for the procedure. Consent signed. Will proceed.
[2024-10-04 08:23] VITALS: BP 118/76; PULSE 63; RESP 16; O2SAT 100
[2024-10-04 08:33] VITALS: BP 121/83; PULSE 57; RESP 16; O2SAT 100
[2024-10-04 08:43] VITALS: BP 124/68; PULSE 54; RESP 12; O2SAT 100
== END 2024-10-04 08:57 | disposition home or self-care (01) ==
PROVIDERS: PCP Family Medicine; Referring Provider Family Medicine; Visit Provider Internal Medicine Gastroenterology
PROC: 0DJD8ZZ Inspection of Lower Intestinal Tract, Via Natural or Artificial Opening Endoscopic (ICD-10-PCS; CPT 45378; principal; 2024-10-04 08:30)
DX: Z12.11 Encounter for screening for malignant neoplasm of colon (principal)
CPT/HCPCS: 45378; J2704; J7120

== ENCOUNTER 2024-12-28 08:09 | Outpatient (CLI) | payer OTHER, SELFPAY ==
--- OUTSIDE RECORDS SUMMARY | 2024-12-28 08:13 | XMS_ITS | Clinical Summary ---
Author Organization [address] Address [address] [place] [address] Care Team Providers Care Guide Winder Name Role Phone Jj Pope MD Primary Care Provider [phone] [phone] Allergies Active Allergy Reactions Criticality Noted Date [...] (10/09/2019): Added automatically from request for surgery [id number] Chondromalacia of medial femoral condyle, left 0 10/09/2019 Overview (10/09/2019): Added automatically from request for surgery [id number] Chronic pain of left knee 08/23/2019 BMI [...] reflux disease) occasionally, no meds Kidney stone 1989's passed on own, N o recurrence Depression [...] on file Legal Sex Male 5:08 PM 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 Gender Identity Not on file Sexual Orientation Not on file Obstetrics History Last Filed Vital Signs Vital Sign Reading Time Taken Comments Blood Pressure 109/77 08/22/2024 8:45 AM 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 Pulse 60 08/22/2024 8:45 AM 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 Temperature 37 C (98.6 F) 08/22/2024 8:45 AM 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 Respiratory Rate 12 11/26/2022 9:31 AM CDT Oxygen Saturation 99% 08/22/2024 8:45 AM 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 Inhaled Oxygen Concentration - - Weight 75.5 kg (166 lb 8 oz) 08/22/2024 8:45 AM 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 Height 175.3 cm (5' 9 ) 08/22/2024 8:45 AM 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 Body Mass Index 24.59 08/22/2024 8:45 AM 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 Plan of Treatment Health Maintenance Due Date Last Done Comments Colon Cancer Screening-Colonoscopy 1965 Depression Screening 1963 Hepatitis C Screening 1963 Prostate Cancer Screening-PSA 1963 Hepatitis B Screening 11/15/1981 Regular Well Visit/Exam 18-64 11/15/1981 DTaP/Tdap/Td Vaccine (1 - Tdap) 07/07/1990 07/06/1990 Zoster Vaccine (1 of 2) 11/15/2013 Covid-19 Vaccine (2023-2 5 season) 2024 08/04/2021, 11/20/2020, 10/23/2020 Influenza Vaccine (Season Ended) 2025 06/19/2021, 05/19/2020, 10/08/2019 Pneumococcal vaccine <65 Aged Out No longer eligible based on patient's age to complete this topic Insurance [facility] [employer] [facility] [employer]O Address: [place] [address] [employer] [facility] [employer] [facility]O Address: [place] [address] [employer] [facility] [employer] [facility] [employer]O Address: [facility] [address] [place] [address] Advance Directives For more information, please contact: [phone] * Full Code (Latest Code Status on File) Date Activated Date Inactivated Comments 10/24/2019 9:28 AM 10/24/2019 2:36 PM Care Teams Guide Winder Relationship Specialty Start Date End Date Jj Pope MD PCP - General 11/16/16
--- OUTSIDE RECORDS SUMMARY | 2024-12-28 08:13 | XMS_ITS | Referral Summary ---
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 Gender Identity Not on file Sexual Orientation Not on file Last Filed Vital Signs Vital Sign Reading Time Taken Comments Blood Pressure 109/77 08/22/2024 8:45 AM GAMEWELL OPERATOR Pulse 60 08/22/2024 8:45 AM GAMEWELL OPERATOR Temperature 37 C (98.6 F) 08/22/2024 8:45 AM GAMEWELL OPERATOR Respiratory Rate 12 11/26/2022 9:31 AM CDT Oxygen Saturation 99% 08/22/2024 8:45 AM GAMEWELL OPERATOR Inhaled Oxygen Concentration - - Weight 75.5 kg (166 lb 8 oz) 08/22/2024 8:45 AM GAMEWELL OPERATOR Height 175.3 cm (5' 9 ) 08/22/2024 8:45 AM GAMEWELL OPERATOR Body Mass Index 24.59 08/22/2024 8:45 AM GAMEWELL OPERATOR Plan of Treatment Not on file Insurance [facility] [place] [id number] [employer] [facility] EM[employer]YEES [employer] Advance Directives For more information, please contact: [phone] * Full Code (Latest Code Status on File) Date Activated Date Inactivated Comments 10/24/2019 9:28 AM 10/24/2019 2:36 PM Care Teams Engraver Optical Frames Relationship Specialty Start Date End Date Jj Pope MD PCP - General 11/16/16
--- OUTSIDE RECORDS SUMMARY | 2024-12-28 08:13 | XMS_ITS | Clinical Summary ---
Author Organization [facility] Address [address] [place] [address] Care Team Providers Care Plant Biology Professor Name Role Phone Jj Pope MD Primary Care Provider +1- [phone] Allergies Active Allergy Reactions Criticality Noted Date [...] 11/15/2013 Zoster Immunization (1 of 2) 11/15/2013 Influenza Immunization (#1) 2024 11/0 12/2020, 05/19/2020, [...] patient's age to complete this topic Insurance [facility] Care Teams Plant Biology Professor Relationship Specialty Start Date End Date Jj Pope MD [address] [place] [id number] PCP - General Family Medicine 10/31/21
--- OUTSIDE RECORDS SUMMARY | 2024-12-28 08:13 | XMS_ITS | Clinical Summary ---
Author Organization [facility] Address [address] [place] [address] Care Team Providers Care Pie Crust Mixer Name Role Phone Jj Pope MD Primary Care Provider +1- [phone] Source Comments [facility],non-owned Affiliates and Associated Physician Practices is amultiple site organization consisting of ambulatory clinics and hospital sitesin [place], [place], [place] and [place]. This disclosure is being madepursuant to the Care Everywhere program and may not contain all information available regarding this patient. 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 Gender Identity Not on file Sexual Orientation [...] VACCINE ( - 2023-2 5 season) 2024 DEPRESSION SCREENING 08/15/2024 INFLUENZA VACCINE (Season Ended) 2025 Respiratory Syncytial Virus (RSV) Vaccine Pt: or [...] to complete this topic MENINGOCOCCAL (Group B) VACC INE SHARED DECISION-MAKING Aged Out No longer eligibl e based on patient's age to complete this topic MENINGOCOCCAL GROUPS A/C/Y/W VACCINE Aged Out No longer eligible b ased on patient's age to complete this topic Insurance [facility] [address] [place] [id number] [facility] Care Teams Pie Crust Mixer Relationship Specialty Start Date End Date Jj Pope MD [address] [place] [phone] PCP - General 06/23/20
--- OUTSIDE RECORDS SUMMARY | 2024-12-28 08:13 | XMS_ITS | Continuity of Care Document ---
Author Organization [facility] Address [address] [place] [address] Phone Care Team Providers Care Chief Underwriter Name Role Phone Errol Ruggiero DO Unavailable Unavailable Advance Directives Directive Yes / No Effective Date File Name No Information Encounters Encounter Description Practice Location Reason(s) For Visit Diagnoses Date Provider Providers Copied on Encounter [facility], [address], [place], [place], [id number], [place] tel:[phone] [facility] Moises De Leon No Information Monik Crum. [address] [facility], [place], [address], [place]. tel: [phone] Family History Family Member Type Diagnosis Age At Onset No Information Payers Payer name Insurance type Covered libertarian ID Authoriza tion(s) No Information Social History [...]
--- OUTSIDE RECORDS SUMMARY | 2024-12-28 08:13 | XMS_ITS | Encounter Summary ---
Author Organization [facility] Address [address] [place] [address] Care Team Providers Care Railcar Switcher Name Role Phone Jj Pope MD Primary Care Provider [phone]- [phone] Encounter Details Date Type Department Care Team (Late st Contact Info) Description 09/23/2022 Lab Requisition [facility] [address] [place] [address] Garrick White MD [address] [place] [place] [address] Social History Tobacco Use Types Packs/Day Years Used Date Smoking Tobacco: Never Assessed Sex and Gender Information Value Date Recorded Sex Assigned at Not on file Legal Sex Male 1:53 PM MANAGEMENT ARCHITECT Gender Identity Not on file Sexual Orientation Not on file documented as of this encounter Plan of Treatment Not on file documented as of this encounter Procedures Procedure Name Priority Date/Time Associated Diagnosis Comments DERMATOPATHOLOGY Routine 09/22/2022 12:0 0 AM MANAGEMENT ARCHITECT documented in this encounter Results * DERMATOPATHOLOGY (09/22/2022 12:00 AM MANAGEMENT ARCHITECT) Case Report Dermatopathology Report Case: [id number] Authorizing Provider: Garrick White MD Collected: 09/22/2022 12:00 AM Ordering Location: [facility] Received: 09/23/2022 04:39 PM Pathologist: Luz Marina Linder MD Specimen: Skin, right upper back 3:29 PM MANAGEMENT ARCHITECT DERMATOPATHOLOGY LABORATORY Final Diagnosis Specimen A. SKIN, right upper back: INTRADERMAL MELANOCYTIC NEVUS, SUPERFICIAL PORTIONS OF (D22.5) 3 3:29 PM MANAGEMENT ARCHITECT DERMATOPATHOLOGY LABORATORY Clinical History Nevus vs. MM Path# [id number] 3 3:29 PM [facility] DERMATOPATHOLOGY LABORATORY Gross Description Specimen A: Received is one formalin filled container labeled with the patient's name and designated right upper back. The specimen consists of a shave biopsy measuring 5x3x1 mm. Jar 0. 3 3:29 PM [facility] DERMATOPATHOLOGY LABORATORY Microscopic Description Specimen A. SKIN, right upper back: There are nests of cytologically bland melanocytes within the dermis that mature with depth. The base of the lesion is not visualized. HMB45 stain is lost in the dermal melanocytes with dermal descent. Additional deeper sections were obtained and reviewed. 3 3:29 PM [facility] DERMATOPATHOLOGY LABORATORY Disclaimer An external and internal positive and negative controls are appropriate for the histochemical, immunohistochemical and immunofluorescence stain(s) in this case (if any), except where stated explicitly. The performance characteristics of the stain(s) cited in this report were developed and its performance characteristic determined by the Dermatopathology Laboratory at [facility], directed by Dr. Letitia Molina. These tests need not be, and therefore are not, approved by the [place] Food and Drug Administration. The tests are used for clinical purposes. Billing Codes Specimen Charges Stain Charges 26424 1 19054 1 3 3:29 PM [facility] DERMATOPATHOLOGY LABORATORY Embedded Images 3 3:29 PM [facility] DERMATOPATHOLOGY LABORATORY Pathology/Cytolog y TISSUE SPECIMEN FROM SKIN / Unknown 09/22/2022 09/23/2022 4:39 PM [facility] us Garrick White MD LAB - PATHOLOGY/CYTOLOGY ORDER JELANI Final Result DERMATOPATHOLOGY LABORATORY [facility] - Department of Dermatology [address] [phone] documented in this encounter Visit Diagnoses Not on filedocumented in this encounter Care Teams Railcar Switcher Relationship Specialty Start Date End Date Jj Pope MD [address] [place] [phone] PCP - General 06/23/20 documented as of this encounter
[2024-12-28 12:33] LABS: Lithium 0.3 mmol/L (0.6-1.2)
[2024-12-28 12:57] LABS: Alanine Aminotransferase 20 U/L (6-50); Albumin Level 4.3 g/dL (3.5-5.1); Alkaline Phosphatase 54 U/L (38-126); Anion Gap 7 mmol/L (4-12); Aspartate Amino Transferase 53 U/L (17-59); Bilirubin,Total 0.8 mg/dL (0.2-1.3); Blood Urea Nitrogen 14 mg/dL (9-20); Calcium 8.7 mg/dL (8.4-10.2); Carbon Dioxide 27 mmol/L (22-30); Chloride 108 mmol/L (98-107); Cholesterol 207 mg/dL (0-200); Estimated Glomerular Filt Rate > 60; Glucose 81 mg/dL (65-110); HDL Direct 31 mg/dL; Potassium 4.6 mmol/L (3.4-5.0); Sodium 142 mmol/L (137-145); Triglycerides 233 mg/dL (<150)
[2024-12-28 13:21] LABS: LDL Cholesterol Direct 105 mg/dL
[2024-12-28 13:22] LABS: Prostate Specific Antigen 0.6 ng/mL (< OR = 4.0); Thyroid Stimulating Hormone 0.965 uIU/mL (0.465-4.680)
== END 2024-12-28 08:10 | disposition home or self-care (01) ==
LOC: ANHGOSHLAB 08:11
PROVIDERS: PCP Family Medicine; Visit Provider Family Medicine
DX: E78.1 Pure hyperglyceridemia (principal); Z51.81 Encounter for therapeutic drug level monitoring
CPT/HCPCS: 36415; 80053; 80061; 80178; 84153; 84443; G0103

== ENCOUNTER 2025-05-10 14:04 | Outpatient (CLI) | payer OTHER, SELFPAY ==
--- NOTE | ~2025-05-10 | XR_ITS ---
Examination: XR chest 2V Clinical History: 11 mm nodule see left upper lobe in ER ,not on lat Comparison: 10/01/2020 Technique: PA and Lateral Findings: Cardiomediastinal silhouette normal size and configuration. Lungs clear. No acute bony abnormality. IMPRESSION: 1. No acute cardiopulmonary findings. Reviewed, dictated and finalized at location R.
== END 2025-05-10 14:05 | disposition home or self-care (01) ==
LOC: GOSHIMG 14:06
PROVIDERS: PCP Family Medicine; Visit Provider Family Medicine
DX: R22.2 Localized swelling, mass and lump, trunk (principal)
CPT/HCPCS: 71046